=== PATIENT | male | born 1995 | race Caucasian/White ===

== ENCOUNTER 2024-12-15 08:53 | Emergency (ER) | payer BC, OTHER ==
--- OUTSIDE RECORDS SUMMARY | 2024-12-15 08:56 | XMS REPORT | Continuity of Care Document ---
Author Name Unknown Address [address] [place] [address] Organization [facility] Address [address] [place] [address] Care Team Providers Care Clutch Specialist Name Role Phone DEDE Attending Clinician Unavailable Silva Hunt Attending Clinician [phone] VENKAT DIXON Attending Clinician Unavailab jose AGUAYO Admitting Clinician Unavailable Payers Payer Name Policy Type Policy Number Effective Date Expirati on Date Source 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 Ordering Clinician Indication Dosage Frequency Signature (SIG) Comments Components Source ivermectin 3 mg tablet Take 1 tablet twice a day by oral route as directed for 5 days. ivermectin 3 mg tablet Take 1 tablet twice a day by oral route as directed for 5 days. No 1 BID ivermectin 3 mg tablet Take 1 tablet twice a day by oral route as directed for 5 days. [facility] prednisone 20 mg tablet Take 1 tablet twice a day by oral route as directed for 7 days. prednisone 20 mg tablet Take 1 tablet twice a day by oral route as directed for 7 days. No 1 BID prednisone 20 mg tablet Take 1 tablet twice a day by oral route as directed for 7 days. [facility] Zithromax Z-Jesse 250 mg tablet TAKE 2 TABLETS (500 MG) BY ORAL ROUTE ONCE DAILY FOR 1 DAY THEN 1 TABLET (250 MG) BY ORAL ROUTE ONCE DAILY FOR 4 DAYS Zithromax Z-Jesse 250 mg tablet TAKE 2 TABLETS (500 MG) BY ORAL ROUTE ONCE DAILY FOR 1 DAY THEN 1 TABLET (250 MG) BY ORAL ROUTE ONCE DAILY FOR 4 DAYS No Zithromax Z-Jesse 250 mg tablet TAKE 2 TABLETS (500 MG) BY ORAL ROUTE ONCE DAILY FOR 1 DAY THEN 1 TABLET (250 MG) BY ORAL ROUTE ONCE DAILY FOR 4 DAYS [facility] Vital Signs Vital Name Observation Time Observation Value Comments S ource BP Diastolic 2020-12-21 00:00:00 86 mm[Hg] [facility] Height 2020-12-21 00:00:00 71 [in_i] [facility] BMI (Body Mass Index) 2020-12-21 00:00:00 32 kg/m2 [facility] BP Systolic 2020-12-21 00:00:00 148 mm[Hg] [facility] Body Weight 2020-12-21 00:00:00 3667.2 [oz_av] [facility] Plan of Care Planned Activity Planned Date Details Comments Source Diagnostic Test Pending 2020-12-21 00:00:00 rapid SARS CoV 2 Ag, QL IA, respiratory specimen [code = rapid SARS CoV 2 Ag, QL IA, respiratory specimen] [facility] Instructions [facility] Encounters Start Date/Time End Date/Time Encounter Type Admission Type Attending Clinicians Care Facility Care Department Encounter ID Source 2020-12-21 00:00:00 2020-12-21 00:00:00 Outpatient Silva Hunt [facility] [id number] 2020-12-21 00:00:00 2020-12-21 00:00:00 LUDMILA [facility]: [address] [place] [address], [address], [place] [address] , Ph. [facility] [id number] [facility] 2001-10-01 20:03:00 2001-10-01 22:00:00 Emergency ER VENKAT DIXON [facility] [id number] [facility]
[2024-12-15] MEDS ORDERED: ONDANSETRON 4 MG/2 ML VIAL ONE (09:41)
[2024-12-15] MEDS ORDERED: METHYLPREDNISOLONE 125 MG INJ ONE (09:41)
[2024-12-15] MEDS ORDERED: NA CHLORIDE 0.9% 1,000 ML ONE (09:42)
[2024-12-15] MEDS ORDERED: FAMOTIDINE 20 MG/2 ML VIAL IV ONE (09:42)
[2024-12-15] MEDS ORDERED: DIPHENHYDRAMINE 50 MG/ML VIAL ONE (09:42)
--- NOTE | 2024-12-15 10:06 | EDPHYS ---
Physician Documentation [facility] Name: Eduar Reynoso Age: 29 yrs Sex: Male : 1995 Arrival Date: 12/15/2024 Time: 08:53 Bed 15 Private MD: ED Physician Shaun Hawkins HPI: 12/15 09:38 This 29 yrs old Male presents to ER via Ambulatory with complaints of dr5 Allergic Reaction. 09:38 The patient presents with itching, localized swelling. Onset: The symptoms/episode dr5 began/occurred acutely. Patient is a 29-year-old male with no past medical history coming in with insect bite to left face that occurred yesterday. Patient reports that he noticed mild swelling prior to going to bed. Patient reports that he woke up this morning at 330 with worsening left facial swelling where he was stung with mild nausea and diarrhea. Patient reports that he took ibuprofen this morning with mild relief. Patient denies chest pain, shortness of breath, or abdominal pain.. Historical: - Allergies: 09:25 No Known Allergies; jl7 - PMHx: 09:25 None; jl7 - PSHx: 09:25 None; jl7 - Immunization history:: Adult Immunizations unknown. - Infectious Disease History:: Denies. - Social history:: Smoking status: Patient denies any tobacco usage or history of. ROS: 09:38 Constitutional: as per hpi dr5 Exam: 09:38 Constitutional: This is a well developed, well nourished patient who is awake, alert, dr5 and in no acute distress. Head/Face: Normocephalic, atraumatic. Eyes: Pupils equal round and reactive to light, extra-ocular motions intact. Lids and lashes normal. Conjunctiva and sclera are non-icteric and not injected. Cornea within normal limits. Periorbital areas with no swelling, redness, or edema. Neck: Trachea midline, no thyromegaly or masses palpated, and no cervical lymphadenopathy. Supple, full range of motion without nuchal rigidity, or vertebral point tenderness. No Meningismus. Chest/axilla: Normal chest wall appearance and motion. Nontender with no deformity. No lesions are appreciated. Cardiovascular: Regular rate and rhythm with a normal S1 and S2. Normal PMI, no JVD. No pulse deficits. Respiratory: Lungs have equal breath sounds bilaterally, clear to auscultation. No rales, rhonchi or wheezes noted. No increased work of breathing, no retractions or nasal flaring. Abdomen/GI: Soft, non-tender, non-distended Back: No spinal tenderness. No costovertebral tenderness. Full range of motion. Skin: Warm, dry with normal turgor. Normal color with no rashes, no lesions, and no evidence of cellulitis. MS/ Extremity: Pulses equal, no cyanosis. Neurovascular intact. Full, normal range of motion. Neuro: Awake and alert, GCS 15, oriented to person, place, time, and situation. Cranial nerves II-XII grossly intact. Motor strength 5/5 in all extremities. Sensory grossly intact. Cerebellar exam normal. Normal gait. Vital Signs: 09:22 BP 150 / 94; Pulse 68; Resp 15; Temp 98.7; Pulse Ox 100% ; Weight 104.33 kg; Height 5 jl7 ft. 11 in. ; 09:57 BP 121 / 81; Pulse 57; Resp 16; Pulse Ox 100% ; iw 09:22 Body Mass Index 32.08 (104.33 kg, 180.34 cm) jl7 MDM: 09:00 Medical Screening Exam initiated dr5 10:06 Differential diagnosis: anaphylaxis, angioedema, non IgE mediated drug reaction dr5 urticaria, Insect sting, allergic reaction, hives. Data reviewed: vital signs, nurses notes. Consideration of Admission/Observation Escalation of care including admission/observation considered. Escalation considered patient found to have angioedema. I considered the following discharge prescriptions or medication management in the emergency department I discussed and recommended Over The Counter medications, Medications were administered in the Emergency Department. See MAR. Care significantly affected by the following Social Determinants of Health: Poor access to healthcare and/or lack of insurance, Poor access to transportation, Problems related to employment. Counseling: I had a detailed discussion with the patient and/or guardian regarding the historical points, exam findings, and any diagnostic results supporting the discharge/admit diagnosis, the presence of at least one elevated blood pressure reading (>120/80) during this emergency department visit, the need for outpatient follow up, for definitive care, an allergy/site acquisition specialist, a family practitioner, to return to the emergency department if symptoms worsen or persist or if there are any questions or concerns that arise at home. Medication response: Zofran, Pepcid, Benadryl, Solu-Medrol. Response to treatment: the patient's symptoms have markedly improved after treatment. Special discussion: I have referred the patient to see his PCP for further evaluation of high blood pressure. I discussed with the patient/guardian in detail that at this point there is no indication for admission to the hospital. It is understood, however, that if the symptoms persist or worsen the patient needs to return immediately for re-evaluation. Based on the history and exam findings, there is no indication for further emergent testing or inpatient evaluation. I discussed with the patient/guardian the need to see the primary care provider for further evaluation of the symptoms. ED course: Swelling on face has improved. Will have patient continue taking steroid Dosepak, Benadryl, Pepcid as needed. Will cover patient for cellulitis with Keflex. All questions answered. Strict ER precautions given. Recommended increased hydration. Return for any concerns.. Administered Medications: 09: Drug: MethylPrednisoLONE IVP 125 mg IVP once Route: IVP; Site: right antecubital; iw 10:34 Follow up: Response: No adverse reaction iw :55 Drug: diphenhydrAMINE IVP 25 mg IVP once Route: IVP; Site: right antecubital; iw 10:33 Follow up: Response: No adverse reaction; Marked relief of symptoms iw :55 Drug: Famotidine IVP 20 mg IVP once; dilute with 10 mL 0.9% NaCl; give over 2 minutes iw Route: IVP; Site: right antecubital; 10:33 Follow up: Response: No adverse reaction iw : Drug: NS 0.9% IV 1000 ml IV at 1000 ml once; to be given as a bolus over 60 minutes iw Route: IV; Rate: 1000 ml; Site: right antecubital; 10:34 Follow up: Response: No adverse reaction; IV Status: Completed infusion iw :55 Drug: Ondansetron IVP 4 mg IVP once; over 2 minutes Route: IVP; Site: right antecubital;iw 10:32 Follow up: Response: No adverse reaction; Nausea is decreased iw Disposition Summary: 12/15/24 10:05 Discharge Ordered Notes: Location: Home dr5 Condition: Stable dr5 Diagnosis - Toxic effect of venom of wasps, accidental (unintentional) dr5 Followup: dr5 - With: Emergency Department - When: As needed - Reason: Worsening of condition Followup: dr5 - With: Private Physician - When: 1 - 2 days - Reason: Recheck today's complaints, Continuance of care, Re-evaluation by your physician Discharge Instructions: - Discharge Summary Sheet dr5 - Hives dr5 Forms: - Work release form dr5 - Medication Reconciliation Form dr5 - Antibiotic Education dr5 - Patient Portal Instructions dr5 - Leadership Thank You Letter dr5 Prescriptions: - epinephrine 0.3 mg/0.3 mL Injection Auto-Injector - administer 0.3 milligram INTRAMUSCULAR route one time As needed as needed for dr5 hypersensitivity reaction; do not exceed 3 doses per episode; 1 application; Refills: 0, Product Selection Permitted - Benadryl 25 mg Oral capsule - take 1 capsule ORAL route every 8 hours As needed; 20 tablet; Refills: 0, dr5 Product Selection Permitted - Cephalexin 500 mg Oral Capsule - take 1 capsule ORAL route every 12 hours for 10 days; 20 capsule; Refills: 0, dr5 Product Selection Permitted - Medrol (Jesse) 4 mg Oral Tablets, Dose Pack - take 1 tablet ORAL route as directed - follow package instructions; 1 packet; dr5 Refills: 0, Product Selection Permitted - Pepcid 20 mg Oral Tablet - take 1 tablet ORAL route once daily for 10 days; 10 tablet; Refills: 0, Product dr5 Selection Permitted Addendum: 12/17/2024 13:26 Co-signature as Attending Physician, Shaun Hawkins MD I agree with the assessment and c castano plan of care. Signatures: Shaun Hawkins MD MD cha Williams, Irene, RN Madisyn Costello RN RN jl7 Ludwig Farias, PASSENGER RATE CLERK-C PASSENGER RATE CLERK-Cdr5
--- NOTE | 2024-12-15 10:06 | ER ---
Nurse's Notes [facility] Name: Eduar Reynoso Age: 29 yrs Sex: Male : 1995 Arrival Date: 12/15/2024 Time: 08:53 Bed 15 Private MD: Diagnosis: Toxic effect of venom of wasps, accidental (unintentional) Presentation: 12/15 09:22 Chief complaint: Patient states: Bit by insect on left facial area, swelling noted, jl7 nausea and diarrhea started this morning. Coronavirus screen: At this time, the client does not indicate any symptoms associated with coronavirus-19. Ebola Screen: No symptoms or risks identified at this time. Initial Sepsis Screen: Does the patient meet any 2 criteria? No. Patient's initial sepsis screen is negative. Does the patient have a suspected source of infection? No. Patient's initial sepsis screen is negative. Risk Assessment: Do you want to hurt yourself or someone else? Patient reports no desire to harm self or others. Onset of symptoms was December 15, 2024. 09:22 Method Of Arrival: Ambulatory jl7 09:22 Acuity: JUAN J 3 jl7 10:34 Onset: The symptoms/episode began/occurred acutely. Anaphylaxis evaluation, no signs or iw symptoms of anaphylaxis were noted. Triage Assessment: 09:25 General: Appears in no apparent distress. uncomfortable, Behavior is calm, cooperative, jl7 appropriate for age. Pain: Complains of pain in face. Historical: - Allergies: 09:25 No Known Allergies; jl7 - PMHx: 09:25 None; jl7 - PSHx: 09:25 None; jl7 - Immunization history:: Adult Immunizations unknown. - Infectious Disease History:: Denies. - Social history:: Smoking status: Patient denies any tobacco usage or history of. Screenin:56 [facility] ED Fall Risk Assessment (Adult) History of falling in the last 3 months, iw including since admission No falls in past 3 months (0 pts) Confusion or Disorientation No (0 pts) Intoxicated or Sedated No (0 pts) Impaired Gait No (0 pts) Mobility Assist Device Used No (0 pt) Altered Elimination No (0 pt) Score/Fall Risk Level 0 - 2 = Low Risk Oriented to surroundings, Maintained a safe environment, Educated pt \T\ family on fall prevention, incl call for assistance when getting out of bed. Abuse screen: Denies threats or abuse. Nutritional screening: No deficits noted. Tuberculosis screening: No symptoms or risk factors identified. Assessment: 09:55 General: Appears in no apparent distress. Behavior is calm, cooperative. Pain: Denies iw pain. Neuro: Level of Consciousness is awake, alert, obeys commands, Oriented to person, place, time, situation, Moves all extremities. Full function. Cardiovascular: Patient's skin is warm and dry. Respiratory: Airway is patent Respiratory effort is even, unlabored, Breath sounds are clear bilaterally. GI: Abdomen is flat, non-distended. Derm: Skin is intact. Derm: swelling to left side of face. Vital Signs: 09:22 BP 150 / 94; Pulse 68; Resp 15; Temp 98.7; Pulse Ox 100% ; Weight 104.33 kg; Height 5 jl7 ft. 11 in. ; 09:57 BP 121 / 81; Pulse 57; Resp 16; Pulse Ox 100% ; iw 09:22 Body Mass Index 32.08 (104.33 kg, 180.34 cm) jl7 ED Course: 08:56 Patient arrived in ED. cj3 09:00 Ludwig Farias [facility]NP-C [facility] dr5 09:00 Shaun Hawkins MD is Attending Physician. dr5 09:25 Triage completed. jl7 09:25 Arm band placed on right wrist. jl7 09:39 Darcie Godinez, RN is Primary Nurse. iw 09:40 Inserted saline lock: 20 gauge in right antecubital area, using aseptic technique. iw 09:56 No provider procedures requiring assistance completed. iw 10:35 Patient has correct armband on for positive identification. Bed in low position. Call iw light in reach. Side rails up X2. Provided Education on: POC. Verbalized understanding.. Client placed on continuous cardiac and pulse oximetry monitoring. NIBP monitoring applied. Pulse ox on. NIBP on. 10:35 IV discontinued, intact, bleeding controlled, No redness/swelling at site. Pressure iw dressing applied. Administered Medications: :55 Drug: MethylPrednisoLONE IVP 125 mg IVP once Route: IVP; Site: right antecubital; iw 10:34 Follow up: Response: No adverse reaction iw 09:55 Drug: diphenhydrAMINE IVP 25 mg IVP once Route: IVP; Site: right antecubital; iw 10:33 Follow up: Response: No adverse reaction; Marked relief of symptoms iw 09:55 Drug: Famotidine IVP 20 mg IVP once; dilute with 10 mL 0.9% NaCl; give over 2 minutes iw Route: IVP; Site: right antecubital; 10:33 Follow up: Response: No adverse reaction iw 09:55 Drug: NS 0.9% IV 1000 ml IV at 1000 ml once; to be given as a bolus over 60 minutes iw Route: IV; Rate: 1000 ml; Site: right antecubital; 10:34 Follow up: Response: No adverse reaction; IV Status: Completed infusion iw 09:55 Drug: Ondansetron IVP 4 mg IVP once; over 2 minutes Route: IVP; Site: right antecubital;iw 10:32 Follow up: Response: No adverse reaction; Nausea is decreased iw Medication: 09:56 VIS not applicable for this client. iw Outcome: 10:05 Discharge ordered by . diane 10:36 Discharged to home ambulatory, with family, iw 10:36 Condition: stable 10:36 Discharge instructions given to patient, Instructed on discharge instructions, follow up and referral plans. medication usage, Demonstrated understanding of instructions, follow-up care, medications, Prescriptions given X 4, 10:36 Patient left the ED. iw Signatures: Darcie Godinez RN RN iw Madisyn Alicea RN RN jl7 Ludwig Farias, INTELLECTUAL PROPERTY MANAGER-C INTELLECTUAL PROPERTY MANAGER-Cdr5 Lori Antonio cj3
[2024-12-15 13:17] VITALS: TEMP 98.7; O2SAT 100
[2024-12-15 13:27] VITALS: BP 121/81
== END 2024-12-15 10:36 | disposition home or self-care (01) ==
LOC: ER 08:53
DX: T63.461A Toxic effect of venom of wasps, accidental (unintentional), initial encounter (principal)
CPT/HCPCS: 96361; 96375; 96374; 99284; J1200; J2919; J2405; J7030